=== PATIENT | female | born 1980 | race Two or more races ===

== ENCOUNTER → 2016-10-21 | Outpatient (CLI) | payer OTHER ==
[~2016-10-21] MED LIST: CARAFATE1 GM PO; IRON325 MG PO; LASIX40 MG PO; LORAZEPAM0.5 MG PO; NOHOMEMEDS; OMEPRAZOLE40 M1 PO; OXYCODONE-APAP1 EAC6 PO; ZOFRAN4 MG PO
== END | disposition home or self-care (01) ==
LOC: OPR 10-15 08:00 → EDSTATUS 09:00 → OPR 09:00
PROC: 0FB03ZX Excision of Liver, Percutaneous Approach, Diagnostic (ICD-10-PCS; principal; 2016-10-21)
DX: C78.7 Secondary malignant neoplasm of liver and intrahepatic bile duct (principal); C18.9 Malignant neoplasm of colon, unspecified; D64.9 Anemia, unspecified
CPT/HCPCS: 77012; 85610; 85730; 88305; 88341 TC; 88342 TC; J3010

== ENCOUNTER → 2017-06-19 | Outpatient (CLI) | payer OTHER ==
[~2017-06-19] MED LIST changes: +MOTRIN400 MG PO
== END | disposition home or self-care (01) ==
LOC: AMB 09:21
PROC: 0JPT3WZ Removal of Totally Implantable Vascular Access Device from Trunk Subcutaneous Tissue and Fascia, Percutaneous Approach (ICD-10-PCS; principal; 2017-06-19)
PROC: 02PYX3Z Removal of Infusion Device from Great Vessel, External Approach (ICD-10-PCS; principal; 2017-06-19)
DX: Z45.2 Encounter for adjustment and management of vascular access device (principal); I87.8 Other specified disorders of veins; Z92.21 Personal history of antineoplastic chemotherapy

== ENCOUNTER → 2017-07-06 | Outpatient (CLI) | payer OTHER ==
[~2017-07-06] VITALS: Ht 157.5 cm; Wt 63.5 kg
[~2017-07-06] MED LIST changes: +MULTIPLE VITAM1 EAC4 PO
== END | disposition home or self-care (01) ==
LOC: AMB 12:46
PROC: 0DJD8ZZ Inspection of Lower Intestinal Tract, Via Natural or Artificial Opening Endoscopic (ICD-10-PCS; principal; 2017-07-06)
DX: Z48.3 Aftercare following surgery for neoplasm (principal); Z85.038 Personal history of other malignant neoplasm of large intestine; Z87.891 Personal history of nicotine dependence; Z92.21 Personal history of antineoplastic chemotherapy
CPT/HCPCS: J2250